=== PATIENT | female | born 1995 | race Two or more races ===

== ENCOUNTER 2024-06-27 09:47 | Emergency (ER) | payer BC ==
[~2024-06-27] VITALS: Ht 172.7 cm; Wt 129.6 kg
[2024-06-27] MEDS ORDERED: SPIR-10 PO (10:11)
[2024-06-27 11:48] VITALS: BP 155/94; TEMP 97.3; O2SAT 99
== END 2024-06-27 11:50 | disposition home or self-care (01) ==
LOC: M ED 09:47
DX: S06.0X0A Concussion without loss of consciousness, initial encounter (principal); S01.01XA Laceration without foreign body of scalp, initial encounter; Y92.019 Unspecified place in single-family (private) house as the place of occurrence of the external cause; Y93.9 Activity, unspecified; Y99.9 Unspecified external cause status; W00.0XXA Fall on same level due to ice and snow, initial encounter; Z79.899 Other long term (current) drug therapy